=== PATIENT | male | born 1940 | race Caucasian/White ===

== ENCOUNTER 2016-02-22 13:10 | Inpatient (IN) | payer OTHER ==
[~2016-02-22] VITALS: Ht 165.1 cm; Wt 76.8 kg
[2016-02-22] MEDS ORDERED: IV NS 0.9% 500 ML IV ONE (13:19)
[2016-02-22] MEDS ORDERED: IV SET PRIMARY 1 EA INFUS.SET MC ONE (13:19)
[2016-02-22] MEDS ORDERED: IV NS 0.9% 500 ML BAG IV ONE (13:30)
[2016-02-22] MEDS ORDERED: ATOR10TA PO (13:32)
[2016-02-22] MEDS ORDERED: METH1TAB30 PO (13:32)
[2016-02-22] MEDS ORDERED: CLOP75TA2 PO (13:32)
[2016-02-22] MEDS ORDERED: CARB-93 PO (13:32)
[2016-02-22] MEDS ORDERED: AMLO5TAB2 PO (13:32)
[2016-02-22] MEDS ORDERED: LISI-607 PO (13:32)
[2016-02-22] MEDS ORDERED: SILO8CAP PO (13:32)
[2016-02-22] MEDS ORDERED: RASA1TAB PO (13:32)
[2016-02-22 13:33] LABS: DIFF TOTAL % 100 %; EOSINOPHILS # (AUTO) 0.2 /CMM (0.0-0.7); EOSINOPHILS % (AUTO) 1.9 % (0.0-6.0); HEMATOCRIT 45 % (39-51); HEMOGLOBIN 14.9 g/dL (13.5-17.5); LYMPHOCYTES # (AUTO) 0.9 /CMM (0.8-4.8); LYMPHOCYTES % (AUTO) 9.1 % (20.0-44.0); MEAN CORPUSCULAR HEMOGLOBIN 30 PG (26.0-33.0); MEAN CORPUSCULAR HGB CONC 33 g/dl (31.0-36.0); MEAN CORPUSCULAR VOLUME 90 fL (80-96); MONOCYTES # (AUTO) 0.4 /CMM (0.1-1.30); MONOCYTES % (AUTO) 3.7 % (2.0-12.0); NEUTROPHILS # (AUTO) 8.5 /CMM (1.8-8.9); NEUTROPHILS % (AUTO) 85.3 % (43.0-81.0); PLATELET COUNT (AUTO) 239 /CMM (150-450)
[2016-02-22 13:52] LABS: ALANINE AMINOTRANSFERASE 33 U/L (12-78); ALBUMIN 3.7 g/dL (3.4-5.0); ANION GAP 16 (5-14); ASPARTATE AMINOTRANSFERASE 17 U/L (15-37); BILIRUBIN,DIRECT 0.3 mg/dL (0.0-0.2); BILIRUBIN,TOTAL 0.8 mg/dL (0.2-1.0); CALCIUM, SERUM 10.1 mg/dL (8.5-10.1); CARBON DIOXIDE 25 mmol/L (21-32); CHLORIDE 104 mmol/L (98-107); CREATININE 1.6 mg/dL (0.6-1.3); GLUCOSE 127 mg/dL (74-106); INDIRECT BILIRUBIN 0.5 mg/dL (0.0-1.1); POTASSIUM 3.7 mmol/L (3.5-5.1); SODIUM SERUM 142 mmol/L (136-145); TOTAL PROTEIN, SERUM 7.9 g/dL (6.4-8.2); UREA NITROGEN, BLOOD 30 mg/dL (7-18)
[2016-02-22 13:56] LABS: TROPONIN I < 0.017 ng/mL (0.00-0.056)
[2016-02-22 14:08] LABS: INR 1.02 (0.87-1.13)
[2016-02-22 14:21] LABS: THYROID STIMULATING HORMONE 0.745 uIU/mL (0.358-3.74)
[2016-02-22 15:38] LABS: KETONES,URINE 2+ (NEGATIVE); LEUKOCYTE ESTERASE ,URINE 2+ (NEGATIVE)
[2016-02-22 15:45] LABS: ADD UA MICROSCOPIC YES
[2016-02-22 16:29] LABS: ADD URINE CULTURE YES; MUCUS,URINE Moderate /LPF (None Seen); WBC,URINE TOO NUMEROUS TO COUN /HPF (0-3)
[2016-02-22] MEDS ORDERED: CEFTRIAXONE 1GM BAG (ER ONLY) 50 ML IV ONE ×2 (16:30→17:08)
[2016-02-22] MEDS ORDERED: IV SET PRIMARY PUMP SET 1 EA INFUS.SET MC ONE ×2 (17:08→19:54)
[2016-02-22 17:09] LABS: BAND % (MANUAL) 3 % (0.0-5.0); EOSINOPHILS % (MANUAL) 3 % (0-4); LYMPHOCYTES % (MANUAL) 10 % (16-48)
[2016-02-22] MEDS ORDERED: IV NS 0.9% 1,000 ML IV PRN (18:09)
[2016-02-22] MEDS ORDERED: MAG HYDROX/AL HYDROX/SIMETH 30 ML UDC PO PRN (18:30)
[2016-02-22] MEDS ORDERED: ONDANSETRON HCL/PF 4 MG/2 ML VIAL IVP PRN (18:30)
[2016-02-22] MEDS ORDERED: Z GUARD REMEDY 2 OZ OINT TP PRN (18:30)
[2016-02-22] MEDS ORDERED: MAGNESIUM HYDROXIDE 30 ML UDC PO PRN (18:30)
[2016-02-22] MEDS ORDERED: HYDROCODONE/APAP 5/325MG 1 EACH TABLET PO PRN (18:30)
[2016-02-22] MEDS ORDERED: ZOLPIDEM TARTRATE 5 MG TABLET PO PRN (18:30)
[2016-02-22 18:59] VITALS: BP 150/86
[2016-02-22 20:00] VITALS: BP 150/86
[2016-02-22] MEDS: CARBIDOPA/LEVODOPA 25/100 MG 1 UDTAB PO SCH (21:09)
[2016-02-23 07:23] VITALS: BP 161/79
[2016-02-23] MEDS ORDERED: PANTOPRAZOLE 40 MG TABLET.DR PO SCH (07:30)
[2016-02-23 08:00] VITALS: BP_SYST 151; BP_SYST 161; BP_DIAS 79
[2016-02-23] MEDS: CARBIDOPA/LEVODOPA 25/100 MG 1 UDTAB PO SCH ×2 (08:25→12:40)
[2016-02-23] MEDS ORDERED: INSULIN REGULAR, HUMAN 100 UNIT/ML 3 ML VIAL SQ PRN ×2 (08:30)
[2016-02-23] MEDS ORDERED: DEXTROSE 50%-WATER 50 ML DISP.SYRIN IV PRN ×2 (08:30)
[2016-02-23] MEDS ORDERED: BLOOD SUGAR DIAGNOSTIC 1 EACH STRIP IN SCH (08:30)
[2016-02-23] MEDS ORDERED: AMLODIPINE BESYLATE 5 MG TABLET PO SCH (09:00)
[2016-02-23] MEDS: AMLODIPINE BESYLATE 10 MG TABLET PO SCH (09:00)
[2016-02-23] MEDS ORDERED: CLOPIDOGREL BISULFATE 75 MG TABLET PO SCH (09:00)
[2016-02-23] MEDS: BLOOD SUGAR DIAGNOSTIC 1 EACH STRIP IN SCH ×3 (09:10→17:01)
[2016-02-23 12:47] LABS: BASOPHILS % (AUTO) 0.5 % (0.0-2.0); DIFF TOTAL % 100 %; EOSINOPHILS # (AUTO) 0.1 /CMM (0.0-0.7); EOSINOPHILS % (AUTO) 1.5 % (0.0-6.0); HEMATOCRIT 42 % (39-51); HEMOGLOBIN 13.9 g/dL (13.5-17.5); LYMPHOCYTES # (AUTO) 0.9 /CMM (0.8-4.8); LYMPHOCYTES % (AUTO) 9.5 % (20.0-44.0); MEAN CORPUSCULAR HEMOGLOBIN 30 PG (26.0-33.0); MEAN CORPUSCULAR HGB CONC 33 g/dl (31.0-36.0); MEAN CORPUSCULAR VOLUME 90 fL (80-96); MONOCYTES # (AUTO) 0.6 /CMM (0.1-1.30); MONOCYTES % (AUTO) 6.2 % (2.0-12.0); NEUTROPHILS # (AUTO) 7.8 /CMM (1.8-8.9); NEUTROPHILS % (AUTO) 82.3 % (43.0-81.0); PLATELET COUNT (AUTO) 232 /CMM (150-450); RED BLOOD CELL COUNT(AUTO) 4.66 MIL/uL (4.5-6.0); WHITE BLOOD COUNT (AUTO) 9.5 K/uL (4.3-11.0)
[2016-02-23 12:58] LABS: CALCIUM, SERUM 9.4 mg/dL (8.5-10.1); CREATININE 1.3 mg/dL (0.6-1.3); PHOSPHORUS 2.5 mg/dL (2.5-4.9); POTASSIUM 3.6 mmol/L (3.5-5.1)
[2016-02-23 16:00] VITALS: BP 156/94
[2016-02-23] MEDS ORDERED: CEFTRIAXONE 1 G in IV D5W 50 ML IV SCH (17:00)
[2016-02-23] MEDS ORDERED: LISINOPRIL (5MG) 5 MG TABLET PO SCH (17:11)
[2016-02-23 17:22] VITALS: BP 156/94
[2016-02-23] MEDS ORDERED: Medication Not On Formulary EA (Methenamine Hippurate 1 GM) PO SCH (18:00)
[2016-02-23] MEDS ORDERED: RAPAFLO 8 MG PO SCH (18:00)
[2016-02-23] MEDS ORDERED: ATORVASTATIN 10 MG TABLET PO SCH (20:00)
== END 2016-02-23 18:25 | disposition short-term general hospital (02) | DRG 689 ==
LOC: ER 13:11 → TELE 18:55 → MED 02-23 00:15
PROVIDERS: ADMIT Internal Medicine; ATTEND Internal Medicine
DX: N39.0 Urinary tract infection, site not specified (principal); G92 Toxic encephalopathy; N17.9 Acute kidney failure, unspecified; G62.9 Polyneuropathy, unspecified; I12.9 Hypertensive chronic kidney disease with stage 1 through stage 4 chronic kidney disease, or unspecified chronic kidney disease; I25.10 Atherosclerotic heart disease of native coronary artery without angina pectoris; K21.9 Gastro-esophageal reflux disease without esophagitis; K57.90 Diverticulosis of intestine, part unspecified, without perforation or abscess without bleeding; M19.90 Unspecified osteoarthritis, unspecified site; G20 Parkinson's disease; M54.12 Radiculopathy, cervical region; F02.80 Dementia in other diseases classified elsewhere, unspecified severity, without behavioral disturbance, psychotic disturbance, mood disturbance, and anxiety; E78.5 Hyperlipidemia, unspecified; N18.3 Chronic kidney disease, stage 3 (moderate); N40.1 Benign prostatic hyperplasia with lower urinary tract symptoms; Z86.73 Personal history of transient ischemic attack (TIA), and cerebral infarction without residual deficits; Z96.649 Presence of unspecified artificial hip joint; Z87.440 Personal history of urinary (tract) infections; D63.8 Anemia in other chronic diseases classified elsewhere; E11.22 Type 2 diabetes mellitus with diabetic chronic kidney disease; R26.9 Unspecified abnormalities of gait and mobility; B96.20 Unspecified Escherichia coli [E. coli] as the cause of diseases classified elsewhere; Z88.2 Allergy status to sulfonamides
CPT/HCPCS: 36415; 70450-TC; 71010-TC; 80048-TC; 80061-TC; 80076-TC; 81000-TC; 82962-TC; 83605-TC; 83735-TC; 84100-TC; 84443-TC; 84484-TC; 85025-TC; 85730-TC; 87040-TC; 87086-TC; 87186-TC; 97001-TC; A4606; G6040-TC; J0696; J1815; J7030; J7040; J7060; Z7610